=== PATIENT | female | born 1985 | race Caucasian/White ===

== ENCOUNTER 2016-11-22 08:03 | Emergency (ER) | payer BC ==
[2016-11-22 09:13] LABS: HEMOGLOBIN 8.2 gm/dl (12.3-15.3); RED BLOOD COUNT 4.44 M/UL (4.00-5.10); WHITE BLOOD COUNT 5.9 K/UL (4.5-11.0)
[2016-11-22 09:18] LABS: BUN/CREATININE RATIO 16 (0-10)
== END 2016-11-22 14:10 | disposition home or self-care (01) ==
LOC: ER1 08:03
PROVIDERS: Physician Assistant
DX: R10.31 Right lower quadrant pain (principal); D64.9 Anemia, unspecified; G40.909 Epilepsy, unspecified, not intractable, without status epilepticus; F17.210 Nicotine dependence, cigarettes, uncomplicated; Z91.040 Latex allergy status; Z88.5 Allergy status to narcotic agent
CPT/HCPCS: 36415; 76830; 80053; 81001; 84703; 85025; 87086; 96374; 99284; J2405; J7050; Q9962

== ENCOUNTER 2016-11-24 11:32 | Emergency (ER) | payer BC | END 2016-11-24 13:52 | disposition home or self-care (01) | LOC: ER1 11:32 | DX: G40.409 Other generalized epilepsy and epileptic syndromes, not intractable, without status epilepticus (principal); F17.200 Nicotine dependence, unspecified, uncomplicated; Z91.14 Patient's other noncompliance with medication regimen | CPT/HCPCS: 99284 ==

== ENCOUNTER 2017-01-07 00:58 | Emergency (ER) | payer BC ==
[2017-01-07 02:03] LABS: HEMOGLOBIN 7.6 gm/dl (12.3-15.3); RED BLOOD COUNT 4.19 M/UL (4.00-5.10); WHITE BLOOD COUNT 8.2 K/UL (4.5-11.0)
[2017-01-07 02:19] LABS: BUN/CREATININE RATIO 15 (0-10)
== END 2017-01-07 03:45 | disposition home or self-care (01) ==
LOC: ER1 00:58
PROVIDERS: Specialist/Technologist Athletic Trainer
DX: N39.0 Urinary tract infection, site not specified (principal); D50.9 Iron deficiency anemia, unspecified; E87.6 Hypokalemia; G40.909 Epilepsy, unspecified, not intractable, without status epilepticus; Z88.5 Allergy status to narcotic agent; Z91.040 Latex allergy status; Z79.899 Other long term (current) drug therapy; Z87.442 Personal history of urinary calculi
CPT/HCPCS: 36415; 80053; 81001; 82150; 83690; 84703; 85025; 96361; 96365; 96375; 99284; J0696; J1885; J3480; J7030; J7050